=== PATIENT | male | born 1980 | race Caucasian/White ===

== ENCOUNTER 2020-10-15 14:33 | Emergency (ER) | payer MEDICARE, OTHER ==
[2020-10-15] MEDS ORDERED: VIBRAMYCIN100 MG PO (15:33)
== END 2020-10-15 15:40 | disposition home or self-care (01) ==
LOC: FER 14:33
DX: S50.861A Insect bite (nonvenomous) of right forearm, initial encounter (principal); S30.861A Insect bite (nonvenomous) of abdominal wall, initial encounter; L03.113 Cellulitis of right upper limb; W57.XXXA Bitten or stung by nonvenomous insect and other nonvenomous arthropods, initial encounter
CPT/HCPCS: 99281